=== PATIENT | female | born 1945 | race African-American/Black ===

== ENCOUNTER 2018-04-03 15:40 | Emergency (ER) | payer MEDICARE, MEDICAID ==
[~2018-04-03] VITALS: Ht 160 cm; Wt 64.0 kg
[2018-04-03] MEDS ORDERED: CYCLOBENZAPRINE 10MG TABLET PO ONE (19:15)
[2018-04-03 20:25] VITALS: BP 120/75
== END 2018-04-03 20:55 | disposition home or self-care (01) ==
LOC: ER 17:12
DX: M54.2 Cervicalgia (principal); I10 Essential (primary) hypertension; E78.00 Pure hypercholesterolemia, unspecified; F32.9 Major depressive disorder, single episode, unspecified; Z88.5 Allergy status to narcotic agent
CPT/HCPCS: 72125; 99284